=== PATIENT | female | born 1930 | race Caucasian/White ===

== ENCOUNTER 2017-04-29 03:59 | Emergency (ER) | payer OTHER ==
[~2017-04-29] VITALS: Ht 165.1 cm; Wt 61.5 kg
[2017-04-29] MEDS ORDERED: MORPHINE SULFATE 4 MG/ML SYRINGE IVP ONE (04:15)
[2017-04-29] MEDS ORDERED: ASPIRIN 81 MG CHEWABLE TABLET PO ONE (04:15)
[2017-04-29] MEDS ORDERED: NITROGLYCERIN 2% (1 GM=INCH) PACKET TP ONE (04:15)
[2017-04-29] MEDS ORDERED: IPRATROPIUM BROMIDE 0.5 MG/2.5 ML NEB SOLUTION NEB ONE (04:15)
[2017-04-29] MEDS ORDERED: ALBUTEROL SULFATE 5 MG/ML 20 ML NEB SOLN [BULK] NEB ONE (04:15)
[2017-04-29] MEDS ORDERED: 0.9% SODIUM CHLORIDE 15 ML NEB SOLUTION NEB ONE (04:30)
[2017-04-29 04:43] LABS: ABG A-A DIFF O2 130.2 mmHg (10-20.0); ABG BASE EXCESS -4.2 mmol/L (-2.0-3.0); ABG HCO3 21.2 mmol/L (22.0-26.0); ABG OXYHEMOGLOBIN 96.6 % (94.0-100.0); ABG PCO2 43 mmHg (35-45); ABG PH 7.325 (7.35-7.450); TEMPERATURE, FAHRENHEIT, BG 98.6 FAHREN (96.0-98.6)
[2017-04-29 04:46] LABS: ALLEN TEST, BLOOD GAS Positive
[2017-04-29] MEDS ORDERED: FURO20 PO (04:49)
[2017-04-29] MEDS ORDERED: VITAD400 PO (04:49)
[2017-04-29] MEDS ORDERED: DEXT30SU17 PO (04:49)
[2017-04-29 05:05] LABS: BASOPHILS # (AUTO) 0.06 K/uL (0.00-0.20); BASOPHILS % (AUTO) 0.7 % (0.0-2.0); EOSINOPHILS # (AUTO) 0.24 K/uL (0.00-0.70); EOSINOPHILS % (AUTO) 2.86 % (1.0-6.0); HEMATOCRIT 30.1 % (36-46); HEMOGLOBIN 9.4 g/dL (12.0-16.0); LYMPHOCYTES # (AUTO) 2.2 K/uL (1.0-4.8); LYMPHOCYTES % (AUTO) 26.8 % (22.0-44.0); MEAN CORPUSCULAR HEMOGLOBIN 23.5 pg (26.0-34.0); MEAN CORPUSCULAR HGB CONC 31.4 G/dL (31.0-37.0); MEAN CORPUSCULAR VOLUME 75 fL (80-100); MONOCYTES # (AUTO) 0.5 K/uL (0.1-1.0); MONOCYTES % (AUTO) 6.3 % (2.0-9.0); NEUTROPHILS # (AUTO) 5.3 K/uL (1.8-7.7); NEUTROPHILS % (AUTO) 63.3 % (40.0-70.0); PLATELET COUNT (AUTO) 445 K/uL (150-450); RED BLOOD CELL COUNT(AUTO) 4.01 MIL/uL (4.00-5.20); WHITE BLOOD COUNT (AUTO) 8.3 K/uL (4.5-11.0)
[2017-04-29] MEDS ORDERED: LEVOFLOXACIN 750 MG/D5% WATER 150 ML IV ONE (05:15)
[2017-04-29 05:21] LABS: CREATININE 1.19 mg/dL (0.60-1.30); POTASSIUM 3.6 mmol/L (3.5-5.1)
[2017-04-29 05:29] LABS: BILIRUBIN,TOTAL 0.2 mg/dL (0.1-1.0); TOTAL PROTEIN, SERUM 7.6 g/dL (6.4-8.2)
[2017-04-29] MEDS ORDERED: FUROSEMIDE 40 MG/4 ML VIAL IVP ONE (05:45)
[2017-04-29 05:57] LABS: RBC MORPHOLOGY COMMENT ABNORMAL RBC MORPH
[2017-04-29 09:30] VITALS: BP 138/73
== END 2017-04-29 09:48 | disposition short-term general hospital (02) ==
LOC: EMS 04:01
DX: I25.9 Chronic ischemic heart disease, unspecified (principal); I50.9 Heart failure, unspecified; I10 Essential (primary) hypertension; Z91.012 Allergy to eggs
CPT/HCPCS: 36415; 71010; 80053; 82805; 83690; 83880; 84484; 85025; 87040; 93005; 94644; 96365; 96375; 99285; J1940; J1956; J2270